=== PATIENT | female | born 1940 | race Caucasian/White ===

== ENCOUNTER 2023-09-29 13:52 | Outpatient (CLI) | payer MEDICARE | END 2023-09-29 13:53 | disposition home or self-care (01) | LOC: NAV RAD 13:52 | PROVIDERS: ATTEND Student in an Organized Health Care Education/Training Program | DX: M25.511 Pain in right shoulder (principal) ==

== ENCOUNTER 2023-10-15 16:37 | Outpatient (CLI) | payer MEDICARE | END 2023-10-15 16:38 | disposition home or self-care (01) | LOC: NAV CT 16:37 | PROVIDERS: ATTEND Student in an Organized Health Care Education/Training Program | DX: M19.012 Primary osteoarthritis, left shoulder (principal) ==